=== PATIENT | male | born 2000 | race Caucasian/White ===

== ENCOUNTER 2019-10-19 09:15 | Emergency (ER) | payer OTHER ==
[~2019-10-19] VITALS: Ht 185.4 cm; Wt 77.1 kg
[2019-10-19 09:56] LABS: Basophils # (auto) 0 10 ^3/uL (0-0.2); Basophils % (auto) 0.1 % (0.0-2.0); Eosinophils # (auto) 0.1 10 ^3/uL (0-0.8); Eosinophils % (auto) 1.5 % (0.0-7.0); Hematocrit 45.3 % (41.0-53.0); Hemoglobin 15.4 g/dL (13.5-17.5); Lymphocytes # (auto) 1.4 10 ^3/uL (0.4-5.4); Lymphocytes % (auto) 17.4 % (10.0-50.0); Mean Corpuscular Hemoglobin 29.8 pg (28.0-32.0); Mean Corpuscular Hgb Conc. 33.9 g/dL (32.0-36.0); Monocytes # (auto) 0.7 10 ^3/uL (0-1.3); Monocytes % (auto) 8.8 % (0.0-12.0); Neutrophils # (auto) 5.8 10 ^3/uL (1.6-8.6); Neutrophils % (auto) 72.2 % (37.0-80.0); Platelet Count (auto) 202 10^3/uL (140-450); Red Blood Cells 5.15 10^6/uL (4.5-5.90); White Blood Cell 8.1 10^3/uL (4.4-10.8)
[2019-10-19 10:12] LABS: Albumin 4.1 g/dL (3.4-5.0); Potassium 3.6 mmol/L (3.5-5.1)
[2019-10-19 10:17] LABS: Bilirubin, Total 0.5 mg/dL (0.2-1.0); Total Protein 7.5 g/dL (6.4-8.2)
[2019-10-19 11:24] LABS: Urine WBC None Seen /hpf (0 - 3)
[2019-10-19 11:29] LABS: Urine Bacteria NONE SEEN /hpf (None Seen); Urine Blood Negative /uL (Negative); Urine Specific Gravity 1.015 (1.001-1.035)
[2019-10-19 11:52] LABS: Amphetamine Screen, Urine NEGATIVE (NEGATIVE); Barbiturate Scree,Urine NEGATIVE (NEGATIVE); Benzodiazephine Screen, Urine NEGATIVE (NEGATIVE); Cannabinoid Screen, Urine POSITIVE (NEGATIVE); Cocaine Screen, Urine NEGATIVE (NEGATIVE); Opiate Scree,Urine NEGATIVE (NEGATIVE); Phencyclidine Screen, Urine NEGATIVE (NEGATIVE)
[2019-10-19 12:39] VITALS: BP 116/64
== END 2019-10-19 12:34 | disposition home or self-care (01) ==
LOC: ER 09:15
DX: R10.84 Generalized abdominal pain (principal); R11.2 Nausea with vomiting, unspecified
CPT/HCPCS: 36415; 74176; 80053; 80307; 81001; 82150; 83690; 85025

== ENCOUNTER 2020-01-28 18:32 | Emergency (ER) | payer OTHER ==
[~2020-01-28] VITALS: Ht 185.4 cm; Wt 79.4 kg
[2020-01-28 20:17] VITALS: BP 118/66
== END 2020-01-28 21:38 | disposition home or self-care (01) ==
LOC: ER 18:32
DX: S51.841A Puncture wound with foreign body of right forearm, initial encounter (principal); S61.441A Puncture wound with foreign body of right hand, initial encounter; S60.811A Abrasion of right wrist, initial encounter; S60.511A Abrasion of right hand, initial encounter; W01.0XXA Fall on same level from slipping, tripping and stumbling without subsequent striking against object, initial encounter; Y93.89 Activity, other specified; Y92.89 Other specified places as the place of occurrence of the external cause; Y99.8 Other external cause status
CPT/HCPCS: 10120; 73090; 73120